=== PATIENT | male | born 1995 | race Caucasian/White ===

== ENCOUNTER 2016-09-18 03:26 | Emergency (ER) | payer OTHER ==
[~2016-09-18] VITALS: Ht 172.7 cm; Wt 78.8 kg
[2016-09-18 03:28] VITALS: TEMP 37.6; Ht 172.7 cm; Wt 78.8 kg
[2016-09-18] MEDS ORDERED: BUPIVACAINE 0.5 % 5 MG/1 ML MPF 30ML VIAL INFIL ONE (03:45)
[2016-09-18] MEDS ORDERED: XYLOCAINE 1%/SOD BICARB 20 ML VIAL INFIL ONE (03:45)
[2016-09-18] MEDS ORDERED: CEFAZOLIN SOD 1000MG/55 ML D5W IV STA (05:13)
[2016-09-18] MEDS ORDERED: CEPH500C PO (05:33)
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
[2016-09-18 05:54] VITALS: BP 124/58; PULSE 91; O2SAT 99
--- NOTE | 2016-09-18 08:17 | DIAGNOSTIC IMAGING REPORT ---
LEFT HAND 3 VIEWS HISTORY: left hand lacerations COMPARISON: None. FINDINGS: There is no fracture or dislocation. Overlying bandage material at the second third digits results in suboptimal evaluation. There appear to be soft tissue lacerations at the second and third digits. No radiopaque foreign bodies. IMPRESSION: No fractures. Soft tissue lacerations at the second third digits. Electronically signed by: Alan Low M.D. 09/18/2016 8:15 AM Dictated Date/Time: 09/18/2016 8:15 AM
== END 2016-09-18 05:56 | disposition home or self-care (01) ==
LOC: C.EDA 03:29
DX: S61.211A Laceration without foreign body of left index finger without damage to nail, initial encounter (principal); S61.213A Laceration without foreign body of left middle finger without damage to nail, initial encounter; X99.1XXA Assault by knife, initial encounter